=== PATIENT | male | born 1965 | race Caucasian/White ===

== ENCOUNTER 2018-10-01 10:07 | Day surgery (SDC) | payer BC ==
[~2018-10-01] VITALS: Ht 175.3 cm; Wt 67.6 kg
[~2018-10-01 10:07] MED LIST: AMLO5 PO; ASPI325 PO; ATOR80 PO; CARV6.25 PO; CLOP75 PO; LISI20 PO
[2018-10-01] MEDS ORDERED: ROSU5 (10:53)
== END 2018-10-01 13:05 | disposition home or self-care (01) ==
LOC: ORSCSDS 10:07
PROVIDERS: Student in an Organized Health Care Education/Training Program
PROC: 0DBM8ZX Excision of Descending Colon, Via Natural or Artificial Opening Endoscopic, Diagnostic (ICD-10-PCS; principal; 2018-10-01 11:30)
PROC: 0DBN8ZX Excision of Sigmoid Colon, Via Natural or Artificial Opening Endoscopic, Diagnostic (ICD-10-PCS; principal; 2018-10-01 11:30)
DX: R15.0 Incomplete defecation (principal); D12.4 Benign neoplasm of descending colon; K63.5 Polyp of colon; K57.30 Diverticulosis of large intestine without perforation or abscess without bleeding; K64.8 Other hemorrhoids; K64.4 Residual hemorrhoidal skin tags; I10 Essential (primary) hypertension; I25.10 Atherosclerotic heart disease of native coronary artery without angina pectoris; E78.5 Hyperlipidemia, unspecified; J44.9 Chronic obstructive pulmonary disease, unspecified; F17.210 Nicotine dependence, cigarettes, uncomplicated; Z79.01 Long term (current) use of anticoagulants; Z79.82 Long term (current) use of aspirin; Z79.899 Other long term (current) drug therapy
CPT/HCPCS: 88305; J2405; J2704; J7120

== ENCOUNTER 2019-01-14 06:50 | Day surgery (SDC) | payer BC ==
[~2019-01-14] VITALS: Ht 175.3 cm; Wt 68.9 kg
[~2019-01-14 06:50] MED LIST changes: +AMLO10 PO; +ASPI81CH PO; +CARV25 PO; +DOCU100 PO; +PANT20 PO; +ROSU5; +ROSU5 PO
--- NOTE | 2019-01-14 07:26 | NUR ---
PT ADMITTED TO MERGED WITH [facility]. AGREES WITH PLANNED SURGERY. LUNG SOUNDS CLEAR. STATES HE WAS NOT GIVEN CHLORHEXADINE FOR PRE-OP SHOWERS FROM DOCTOR OFFICE.
--- NOTE | 2019-01-14 08:42 | NUR ---
01/14/19 0842 Maryam Rodriguez NO PREOP ANTIBIOTICS ORDERED
== END 2019-01-14 10:20 | disposition home or self-care (01) ==
LOC: ORSCMMR 06:50 → ORD 08:30 → ORSCMMR 10:20
PROVIDERS: Surgery
PROC: 06BY0ZC Excision of Hemorrhoidal Plexus, Open Approach (ICD-10-PCS; principal; 2019-01-14 08:30)
DX: K64.2 Third degree hemorrhoids (principal); K64.4 Residual hemorrhoidal skin tags; F17.210 Nicotine dependence, cigarettes, uncomplicated; I25.2 Old myocardial infarction; I25.10 Atherosclerotic heart disease of native coronary artery without angina pectoris; I10 Essential (primary) hypertension; I73.9 Peripheral vascular disease, unspecified; E78.5 Hyperlipidemia, unspecified; J44.9 Chronic obstructive pulmonary disease, unspecified; Z79.01 Long term (current) use of anticoagulants; Z79.82 Long term (current) use of aspirin; Z79.899 Other long term (current) drug therapy
CPT/HCPCS: 88304; J1100; J1885; J2250; J2405; J2704; J3010; J7120

== ENCOUNTER → 2020-11-26 | Outpatient (CLI) | payer BC | END | disposition home or self-care (01) | LOC: LAB SHORT 12:17 → LAB 12:17 | DX: D48.5 Neoplasm of uncertain behavior of skin (principal) | CPT/HCPCS: 88305 ==

== ENCOUNTER → 2020-12-23 | Outpatient (CLI) | payer BC | LOC: LAB SHORT 07:56 | DX: D48.5 Neoplasm of uncertain behavior of skin (principal); Z88.6 Allergy status to analgesic agent; Z88.8 Allergy status to other drugs, medicaments and biological substances | CPT/HCPCS: 88305; 88312 ==

== ENCOUNTER 2021-07-06 06:25 | Day surgery (SDC) | payer BC ==
[~2021-07-06] VITALS: Ht 175.3 cm; Wt 68.0 kg
--- NOTE | 2021-07-06 10:25 | NUR ---
1000 PATIENT ARRIVED BACK TO RECOVERY FROM, SBAR RECEIVED FROM MEGHAN MONTEZ. BILATERAL GROIN SITES AND TR BAND TO THE LEFT RADIAL NOTED. MYNX CLOSURE TO THE RIGHT GROIN. ANGIOSEAL TO THE LEFT GROIN AND TR BAND WITH 14 MLS OF AIR TO THE LEFT RADIAL. 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 PATIENT PLACED ON THE MONITOR. SIDE RAILS UP X TWO. CALL LIGHT IN REACH. VVS. SLEEPY, BUT WAKES TO VERBAL STIMULI.
--- NOTE | 2021-07-06 10:31 | NUR ---
1020 DR. HARDWICK AND FAMILY TO THE BEDSIDE. UPDATE GIVE TO THE FAMILY AND PLAN OF CARE DISCAUSSED. PATIENT WILL RETURN AT A LATER DATE TO HAVE WORK DONE ON THE LOWER RIGHT LEG.
--- NOTE | 2021-07-06 10:32 | NUR ---
PAEITN REPOSITIONED UP IN BED AND HOB UP 10 DEGREES FOR COMFORT. FAMILY AT [facility] BEDSIDE.
[2021-07-06] MEDS ORDERED: CLOP75 PO (10:37)
--- NOTE | 2021-07-06 11:57 | NUR ---
AIR REMOVED FROM THE TR BAND, LUNCH TRAY SERVED AND AT THE BEDSIDE ASSISTING WITH LUNCH.
--- NOTE | 2021-07-06 11:57 | NUR ---
1115 PATIENT HAVING LOTS OF LEFT GROIN PAIN . SITES CHECKED AND NO HEMATOMA OR BLEEIDNG NOTED. GAVE TYLENOL 650 MG PO AND PAITENT REPOSITIONED SELF ON HIS SIDE.
--- NOTE | 2021-07-06 12:40 | NUR ---
TR BAND FLAT, PATIENT UP OOB TO THE RESTROOM. PAIN TO THE LEFT GROIN IMPROVED. REVIEWED DISCHARGE INSTRUCTIONS WITH THE PATIENT AND . GAMA WILL RETURN ON July FOR THE RIGHT LOWER LEG WORK. THE OFFICE WILL CALL AND ARRANGE TIME AND LABWORK PREOP.
--- NOTE | 2021-07-06 13:16 | NUR ---
PATIENT TR BAND REMOVED, SITE CLEANED AND COLTH DOT PLACED, NO HEMATOMA, NO BLEEDING NOTED. TEACHING DONE FOR DISCHARGE. WHITE BOARD REPLACED AND PATIENT UP AND DRESSED FOR DISCHARGE.
--- NOTE | 2021-07-06 13:24 | NUR ---
REVIEWED ALL DISCHARGE INSTRUCTIONS AND CONSENTED FOR RIGHT LEG BY DR. HARDWICK ON July, IGNACIO AT THE OFFICE WILL CALL HIM TO ARRANGE LAB WORK AND REPORTING TIME. ALL QUESTIONS ANSWERED. DISCHARGED VIA WHEELCHAIR WITH ALL BELONGINGS RETAINED BY PATIENT.
== END 2021-07-06 13:30 | disposition home or self-care (01) ==
LOC: MHTC 06:25
DX: I70.213 Atherosclerosis of native arteries of extremities with intermittent claudication, bilateral legs (principal); Z95.5 Presence of coronary angioplasty implant and graft; I25.10 Atherosclerotic heart disease of native coronary artery without angina pectoris; I25.2 Old myocardial infarction; I10 Essential (primary) hypertension; E78.5 Hyperlipidemia, unspecified; F17.290 Nicotine dependence, other tobacco product, uncomplicated; Z79.82 Long term (current) use of aspirin
CPT/HCPCS: 76937; 99152; 99153; A9270; C1725; C1760; C1769; C1874; C1887; C1894; J1644; J2250; J3010; J7030; J7040; Q9967